=== PATIENT | male | born 1945 | race Two or more races ===

== ENCOUNTER 2022-07-13 06:05 | Inpatient (IN) | payer OTHER ==
[~2022-07-13] VITALS: Ht 157.5 cm; Wt 84.1 kg
[2022-07-13] MEDS ORDERED: SODIUM CHLORIDE 0.9% 1,000 ML IV ONE (07:15)
[2022-07-13] MEDS ORDERED: SODIUM CHLORIDE 0.9% 500 ML IV ONE (07:15)
[2022-07-13 08:01] LABS: Basophils # (auto) 0 10 ^3/uL (0-0.2); Eosinophils # (auto) 0.1 10 ^3/uL (0-0.8); Hemoglobin 8.5 g/dL (13.5-17.5); Lymphocytes # (auto) 0.5 10 ^3/uL (0.4-5.4); Monocytes # (auto) 0.3 10 ^3/uL (0-1.3); Neutrophils # (auto) 5.1 10 ^3/uL (1.6-8.6); White Blood Cell 6.1 10^3/uL (4.4-10.8)
[2022-07-13 08:03] LABS: Basophils % (auto) 0.4 % (0.0-2.0); Eosinophils % (auto) 1.8 % (0.0-7.0); Hematocrit 26.4 % (41.0-53.0); Lymphocytes % (auto) 8.8 % (10.0-50.0); Mean Corpuscular Hemoglobin 26.2 pg (28.0-32.0); Mean Corpuscular Hgb Conc. 32.3 g/dL (32.0-36.0); Mean Corpuscular Volume 81.2 fL (80.0-100.0); Monocytes % (auto) 4.8 % (0.0-12.0); Neutrophils % (auto) 84.2 % (37.0-80.0); Nucleated Red Blood Cells % 0.1 %; Red Blood Cells 3.25 10^6/uL (4.5-5.90); Red Cell Distribution Width 21.8 % (11.8-14.3)
[2022-07-13 08:14] LABS: BUN/Creatinine Ratio 13.3; Calcium 7.2 mg/dL (8.5-10.1); Magnesium 1.7 mg/dL (1.6-2.6); Potassium 3.3 mmol/L (3.5-5.1)
[2022-07-13 08:17] LABS: Bilirubin, Total 0.3 mg/dL (0.2-1.0); Total Protein 6.5 g/dL (6.4-8.2)
[2022-07-13] MEDS ORDERED: LEVOTHYROXINE SODIUM 25 MCG TAB PO ONE (09:00)
[2022-07-13] MEDS ORDERED: POTASSIUM EFFERVESENT TAB 25 MEQ PO ONE (09:00)
[2022-07-14] MEDS ORDERED: TEMAZEPAM 15 MG CAP PO PRN (10:00)
[2022-07-14] MEDS: DOCUSATE SOD 100 MG CAP PO SCH ×2 (10:00→21:12)
[2022-07-14] MEDS ORDERED: ACETAMINOPHEN 325 MG TAB PO PRN (10:00)
[2022-07-14] MEDS ORDERED: HYDROcodone-ACET 5/325MG TAB PO PRN (10:00)
[2022-07-14] MEDS ORDERED: DEXTROSE (50%) 50ML SYRG IV PRN (10:00)
[2022-07-14] MEDS: ENOXAPARIN SOD 30 MG/0.3 ML SYRINGE SC SCH (10:50)
[2022-07-14] MEDS: ACCU-CHEK COMFORT CURVE STRIP VI SCH ×3 (11:21→21:12)
[2022-07-14] MEDS: InsuLIN REG 1unit/0.01ml Soln (100units/ml) SC SCH ×3 (11:21→21:13)
[2022-07-14 16:39] VITALS: BP 136/59
[2022-07-14 17:20] VITALS: BP 136/59
[2022-07-14 21:10] LABS: Urine Bacteria FEW /hpf (None Seen); Urine Blood TRACE /uL (Negative); Urine Budding Yeast OCCASIONAL /hpf (None Seen); Urine Specific Gravity 1.012 (1.001-1.035); Urine WBC 46 /hpf (0 - 3)
[2022-07-14 21:52] VITALS: BP 117/60
[2022-07-15 04:41] VITALS: BP 120/57
[2022-07-15 05:12] LABS: Basophils # (auto) 0 10 ^3/uL (0-0.2); Eosinophils # (auto) 0.2 10 ^3/uL (0-0.8); Hemoglobin 8.7 g/dL (13.5-17.5); Monocytes # (auto) 0.4 10 ^3/uL (0-1.3)
[2022-07-15 05:15] LABS: Basophils % (auto) 0.7 % (0.0-2.0); Eosinophils % (auto) 3.3 % (0.0-7.0); Hematocrit 26.8 % (41.0-53.0); Lymphocytes # (auto) 1.3 10 ^3/uL (0.4-5.4); Monocytes % (auto) 6.8 % (0.0-12.0); Neutrophils # (auto) 4.1 10 ^3/uL (1.6-8.6); Neutrophils % (auto) 68.2 % (37.0-80.0); Red Blood Cells 3.34 10^6/uL (4.5-5.90)
[2022-07-15 05:16] LABS: Mean Corpuscular Hemoglobin 26.1 pg (28.0-32.0); Mean Corpuscular Hgb Conc. 32.6 g/dL (32.0-36.0); Mean Corpuscular Volume 80.1 fL (80.0-100.0)
[2022-07-15 05:23] LABS: Red Cell Distribution Width 22.1 % (11.8-14.3)
[2022-07-15 05:32] LABS: Potassium 3.7 mmol/L (3.5-5.1)
[2022-07-15 05:38] LABS: Albumin 1.8 g/dL (3.4-5.0); Bilirubin, Total 0.4 mg/dL (0.2-1.0); Calcium 6.6 mg/dL (8.5-10.1); Total Protein 6.4 g/dL (6.4-8.2)
[2022-07-15] MEDS: InsuLIN REG 1unit/0.01ml Soln (100units/ml) SC SCH ×4 (06:18→21:14)
[2022-07-15] MEDS: ACCU-CHEK COMFORT CURVE STRIP VI SCH ×4 (06:18→21:14)
[2022-07-15 09:00] VITALS: BP 122/57
[2022-07-15] MEDS: DOCUSATE SOD 100 MG CAP PO SCH ×2 (09:30→21:13)
[2022-07-15] MEDS: ENOXAPARIN SOD 30 MG/0.3 ML SYRINGE SC SCH (09:30)
[2022-07-15] MEDS ORDERED: [UNRECOGNIZED DRUG - CODE] PO (12:47)
[2022-07-15] MEDS ORDERED: KETO2CRE4 TOP (12:47)
[2022-07-15] MEDS ORDERED: PRAV20TA3 PO (12:47)
[2022-07-15] MEDS ORDERED: INS7030I SC (12:47)
[2022-07-15] MEDS ORDERED: CALC0.5C PO (12:47)
[2022-07-15] MEDS ORDERED: PRE5T PO (12:47)
[2022-07-15] MEDS ORDERED: AMLO-489 PO (12:47)
[2022-07-15] MEDS ORDERED: CHOLPOW4 PO (12:47)
[2022-07-15] MEDS ORDERED: FERR-20 PO (12:47)
[2022-07-15 13:00] VITALS: BP 127/62
[2022-07-15] MEDS: LOPERAMIDE HCL 2 MG CAP/TAB PO PRN (16:29)
[2022-07-15 16:47] VITALS: BP 125/58
[2022-07-15] MEDS: PRAVASTATIN SODIUM 20 MG TAB PO SCH (17:51)
[2022-07-15] MEDS: FERROUS SULFATE 325mg EC TAB PO SCH (17:51)
[2022-07-15] MEDS: Glucerna Carbsteady SHAKE Chocolate 8oz PO SCH (17:52)
[2022-07-15] MEDS: predniSONE 5 MG TAB PO SCH (21:13)
[2022-07-15 22:00] VITALS: BP 123/60
[2022-07-15] MEDS: CHOLESTYRAMINE 4 GM POWDER PO SCH (22:22)
[2022-07-16] MEDS: LOPERAMIDE HCL 2 MG CAP/TAB PO PRN ×3 (04:38→21:00)
[2022-07-16 04:46] VITALS: BP 112/58
[2022-07-16] MEDS: InsuLIN REG 1unit/0.01ml Soln (100units/ml) SC SCH ×4 (06:21→21:26)
[2022-07-16] MEDS: ACCU-CHEK COMFORT CURVE STRIP VI SCH ×4 (06:26→21:22)
[2022-07-16] MEDS: Glucerna Carbsteady SHAKE Chocolate 8oz PO SCH ×4 (08:00→18:17)
[2022-07-16 08:35] VITALS: BP 108/54
[2022-07-16] MEDS: FERROUS SULFATE 325mg EC TAB PO SCH ×2 (08:52→18:17)
[2022-07-16] MEDS: DOCUSATE SOD 100 MG CAP PO SCH ×2 (08:53→21:22)
[2022-07-16] MEDS: LEVOTHYROXINE SODIUM 112 MCG TAB PO SCH (08:53)
[2022-07-16] MEDS: LEVOTHYROXINE SODIUM 25 MCG TAB PO SCH (08:53)
[2022-07-16] MEDS: predniSONE 5 MG TAB PO SCH ×2 (08:53→21:22)
[2022-07-16] MEDS: amLODIPine BESYLATE 5 MG TAB PO SCH (08:54)
[2022-07-16] MEDS: ENOXAPARIN SOD 30 MG/0.3 ML SYRINGE SC SCH (08:55)
[2022-07-16] MEDS: CALCITRIOL 0.25 MCG CAP PO SCH (08:55)
[2022-07-16] MEDS ORDERED: CALCITRIOL 0.25 MCG CAP PO SCH (10:00)
[2022-07-16] MEDS: CHOLESTYRAMINE 4 GM POWDER PO SCH ×3 (11:00→23:00)
[2022-07-16 12:25] VITALS: BP 113/55
[2022-07-16 16:39] VITALS: BP 114/54
[2022-07-16] MEDS: PRAVASTATIN SODIUM 20 MG TAB PO SCH (18:18)
[2022-07-16 22:00] VITALS: BP 114/57
[2022-07-17 05:00] VITALS: BP 113/56
[2022-07-17] MEDS: ACCU-CHEK COMFORT CURVE STRIP VI SCH ×4 (06:13→21:58)
[2022-07-17] MEDS: InsuLIN REG 1unit/0.01ml Soln (100units/ml) SC SCH ×4 (06:18→21:59)
[2022-07-17] MEDS: LOPERAMIDE HCL 2 MG CAP/TAB PO PRN ×3 (06:28→20:57)
[2022-07-17 08:00] VITALS: BP 114/42
[2022-07-17] MEDS: LEVOTHYROXINE SODIUM 112 MCG TAB PO SCH (08:46)
[2022-07-17] MEDS: Glucerna Carbsteady SHAKE Chocolate 8oz PO SCH ×3 (08:46→17:38)
[2022-07-17] MEDS: FERROUS SULFATE 325mg EC TAB PO SCH ×2 (08:46→17:38)
[2022-07-17] MEDS: LEVOTHYROXINE SODIUM 25 MCG TAB PO SCH (08:47)
[2022-07-17 08:55] VITALS: BP 114/42
[2022-07-17] MEDS: CALCITRIOL 0.25 MCG CAP PO SCH (09:46)
[2022-07-17] MEDS: predniSONE 5 MG TAB PO SCH ×2 (09:46→21:57)
[2022-07-17] MEDS: amLODIPine BESYLATE 5 MG TAB PO SCH (09:46)
[2022-07-17] MEDS: DOCUSATE SOD 100 MG CAP PO SCH ×3 (09:46→22:00)
[2022-07-17] MEDS: ENOXAPARIN SOD 30 MG/0.3 ML SYRINGE SC SCH (09:47)
[2022-07-17] MEDS: CHOLESTYRAMINE 4 GM POWDER PO SCH ×2 (09:54→21:59)
[2022-07-17 13:00] VITALS: BP 124/56
[2022-07-17 16:49] VITALS: BP 123/42
[2022-07-17] MEDS: PRAVASTATIN SODIUM 20 MG TAB PO SCH (17:38)
[2022-07-17 22:00] VITALS: BP 114/53
[2022-07-17] MEDS: HYDROcodone-ACET 5/325MG TAB PO PRN (22:19)
[2022-07-18] VITALS (7 sets, daily range): BP systolic 108–166; BP diastolic 51–90
[2022-07-18] MEDS: ACCU-CHEK COMFORT CURVE STRIP VI SCH ×4 (05:45→20:41)
[2022-07-18] MEDS: LOPERAMIDE HCL 2 MG CAP/TAB PO PRN (06:12)
[2022-07-18] MEDS: InsuLIN REG 1unit/0.01ml Soln (100units/ml) SC SCH ×4 (06:16→21:58)
[2022-07-18] MEDS: LEVOTHYROXINE SODIUM 25 MCG TAB PO SCH (08:22)
[2022-07-18] MEDS: FERROUS SULFATE 325mg EC TAB PO SCH ×2 (08:22→18:25)
[2022-07-18] MEDS: Glucerna Carbsteady SHAKE Chocolate 8oz PO SCH ×3 (08:22→18:25)
[2022-07-18] MEDS: LEVOTHYROXINE SODIUM 112 MCG TAB PO SCH (08:22)
[2022-07-18] MEDS: DOCUSATE SOD 100 MG CAP PO SCH ×2 (10:00→20:41)
[2022-07-18] MEDS: CALCITRIOL 0.25 MCG CAP PO SCH (10:35)
[2022-07-18] MEDS: ENOXAPARIN SOD 30 MG/0.3 ML SYRINGE SC SCH (10:35)
[2022-07-18] MEDS: predniSONE 5 MG TAB PO SCH ×2 (10:35→21:58)
[2022-07-18] MEDS: amLODIPine BESYLATE 5 MG TAB PO SCH (10:36)
[2022-07-18] MEDS: CHOLESTYRAMINE 4 GM POWDER PO SCH ×2 (11:00→20:42)
[2022-07-18] MEDS ORDERED: cefTRIAXone 1GM/50ML D5W 50 ML IV ONE (13:30)
[2022-07-18] MEDS: PRAVASTATIN SODIUM 20 MG TAB PO SCH (18:26)
[2022-07-18] MEDS: HYDROcodone-ACET 5/325MG TAB PO PRN (22:08)
[2022-07-19 05:00] VITALS: BP 112/55
[2022-07-19] MEDS: ACCU-CHEK COMFORT CURVE STRIP VI SCH ×4 (06:41→21:08)
[2022-07-19] MEDS: InsuLIN REG 1unit/0.01ml Soln (100units/ml) SC SCH ×4 (06:42→21:08)
[2022-07-19 07:28] LABS: Calcium 6.3 mg/dL (8.5-10.1); Magnesium 1.8 mg/dL (1.6-2.6); Potassium 4.6 mmol/L (3.5-5.1)
[2022-07-19 07:30] LABS: BUN/Creatinine Ratio 15.6
[2022-07-19 07:37] LABS: Hemoglobin 8.6 g/dL (13.5-17.5); White Blood Cell 7.2 10^3/uL (4.4-10.8)
[2022-07-19 07:39] LABS: Hematocrit 26.2 % (41.0-53.0); Mean Corpuscular Hemoglobin 25.9 pg (28.0-32.0); Mean Corpuscular Volume 78.4 fL (80.0-100.0); Red Blood Cells 3.34 10^6/uL (4.5-5.90)
[2022-07-19 07:46] LABS: Red Cell Distribution Width 21.5 % (11.8-14.3)
[2022-07-19 07:48] LABS: Band Neutrophils % (manual) 0; Basophils % (manual) 0 (0.0-2.0); Blast Cells 0; Eosinophils % (manual) 0 (0-7); Metamyelocytes % 0; Reactive Lymphocytes 0
[2022-07-19 08:00] VITALS: BP 129/61
[2022-07-19] MEDS: FERROUS SULFATE 325mg EC TAB PO SCH ×2 (08:05→18:03)
[2022-07-19] MEDS: Glucerna Carbsteady SHAKE Chocolate 8oz PO SCH ×3 (08:05→18:03)
[2022-07-19] MEDS: LEVOTHYROXINE SODIUM 112 MCG TAB PO SCH (08:06)
[2022-07-19] MEDS: LEVOTHYROXINE SODIUM 25 MCG TAB PO SCH (08:06)
[2022-07-19 08:45] VITALS: BP 129/61
[2022-07-19 09:16] LABS: Lymphocytes % (manual) 13 (10.0-50.0); Monocytes % (manual) 10 (0-12); Myelocytes % 1; Promyelocytes % 2
[2022-07-19] MEDS: amLODIPine BESYLATE 5 MG TAB PO SCH (09:31)
[2022-07-19] MEDS: cefTRIAXone 1GM/50ML D5W 50 ML IV SCH (09:31)
[2022-07-19] MEDS: ENOXAPARIN SOD 30 MG/0.3 ML SYRINGE SC SCH (09:31)
[2022-07-19] MEDS: predniSONE 5 MG TAB PO SCH ×2 (09:32→21:07)
[2022-07-19] MEDS: CALCITRIOL 0.25 MCG CAP PO SCH (09:32)
[2022-07-19] MEDS: DOCUSATE SOD 100 MG CAP PO SCH (09:33)
[2022-07-19] MEDS: CHOLESTYRAMINE 4 GM POWDER PO SCH ×2 (11:50→23:48)
[2022-07-19 12:00] VITALS: BP 121/74
[2022-07-19] MEDS ORDERED: FUROSEMIDE 40 MG/4 ML VIAL IV ONE (13:30)
[2022-07-19 16:00] VITALS: BP 128/56
[2022-07-19] MEDS: PRAVASTATIN SODIUM 20 MG TAB PO SCH (18:03)
[2022-07-19 21:39] VITALS: BP 120/56
[2022-07-20] VITALS (7 sets, daily range): BP systolic 100–121; BP diastolic 31–67
[2022-07-20 06:13] LABS: Hematocrit 23.2 % (41.0-53.0); Mean Corpuscular Hemoglobin 26.7 pg (28.0-32.0); Mean Corpuscular Hgb Conc. 34.5 g/dL (32.0-36.0); Mean Corpuscular Volume 77.4 fL (80.0-100.0); White Blood Cell 8.8 10^3/uL (4.4-10.8)
[2022-07-20 06:16] LABS: BUN/Creatinine Ratio 17.6; Magnesium 1.5 mg/dL (1.6-2.6); Potassium 4.3 mmol/L (3.5-5.1)
[2022-07-20 06:30] LABS: Red Cell Distribution Width 22.1 % (11.8-14.3)
[2022-07-20 06:32] LABS: Basophils % (manual) 0 (0.0-2.0); Blast Cells 0; Eosinophils % (manual) 0 (0-7); Promyelocytes % 0; Reactive Lymphocytes 0
[2022-07-20] MEDS: ACCU-CHEK COMFORT CURVE STRIP VI SCH ×4 (06:43→21:47)
[2022-07-20] MEDS: InsuLIN REG 1unit/0.01ml Soln (100units/ml) SC SCH ×4 (06:43→21:52)
[2022-07-20 07:49] LABS: Calcium 5.8 mg/dL (8.5-10.1)
[2022-07-20] MEDS: FERROUS SULFATE 325mg EC TAB PO SCH ×2 (07:54→18:00)
[2022-07-20] MEDS: LEVOTHYROXINE SODIUM 112 MCG TAB PO SCH (07:54)
[2022-07-20] MEDS: LEVOTHYROXINE SODIUM 25 MCG TAB PO SCH (07:54)
[2022-07-20 08:15] LABS: Band Neutrophils % (manual) 3; Lymphocytes % (manual) 8 (10.0-50.0); Metamyelocytes % 6; Monocytes % (manual) 5 (0-12); Myelocytes % 2
[2022-07-20] MEDS: Glucerna Carbsteady SHAKE Chocolate 8oz PO SCH ×3 (09:49→18:00)
[2022-07-20] MEDS: cefTRIAXone 1GM/50ML D5W 50 ML IV SCH (09:49)
[2022-07-20] MEDS: FUROSEMIDE 40 MG/4 ML VIAL IV SCH (09:50)
[2022-07-20] MEDS: predniSONE 5 MG TAB PO SCH ×2 (09:50→20:40)
[2022-07-20] MEDS: MAGNESIUM OXIDE 400 MG TAB PO SCH ×2 (09:51→20:40)
[2022-07-20] MEDS: amLODIPine BESYLATE 5 MG TAB PO SCH (09:52)
[2022-07-20] MEDS: ENOXAPARIN SOD 30 MG/0.3 ML SYRINGE SC SCH (09:52)
[2022-07-20] MEDS: CALCITRIOL 0.25 MCG CAP PO SCH (10:02)
[2022-07-20] MEDS: PRAVASTATIN SODIUM 20 MG TAB PO SCH (18:00)
[2022-07-21 04:46] VITALS: BP 112/54
[2022-07-21] MEDS: ACCU-CHEK COMFORT CURVE STRIP VI SCH ×4 (06:09→22:00)
[2022-07-21] MEDS: InsuLIN REG 1unit/0.01ml Soln (100units/ml) SC SCH ×4 (06:12→22:37)
[2022-07-21 06:16] LABS: Hematocrit 23.5 % (41.0-53.0)
[2022-07-21 06:18] LABS: Mean Corpuscular Hemoglobin 26.4 pg (28.0-32.0); Mean Corpuscular Hgb Conc. 33.9 g/dL (32.0-36.0); Mean Corpuscular Volume 77.7 fL (80.0-100.0); Red Blood Cells 3.03 10^6/uL (4.5-5.90); White Blood Cell 9.4 10^3/uL (4.4-10.8)
[2022-07-21 06:30] LABS: Red Cell Distribution Width 21.6 % (11.8-14.3)
[2022-07-21 06:32] LABS: Basophils % (manual) 0 (0.0-2.0); Blast Cells 0; Eosinophils % (manual) 0 (0-7); Promyelocytes % 0; Reactive Lymphocytes 0
[2022-07-21 06:35] LABS: Potassium 3.9 mmol/L (3.5-5.1)
[2022-07-21 06:39] LABS: BUN/Creatinine Ratio 17.8
[2022-07-21 06:54] LABS: Calcium 5.3 mg/dL (8.5-10.1)
[2022-07-21] MEDS: FERROUS SULFATE 325mg EC TAB PO SCH ×2 (08:04→16:47)
[2022-07-21] MEDS: LEVOTHYROXINE SODIUM 112 MCG TAB PO SCH (08:04)
[2022-07-21] MEDS: LEVOTHYROXINE SODIUM 25 MCG TAB PO SCH (08:04)
[2022-07-21] MEDS: Glucerna Carbsteady SHAKE Chocolate 8oz PO SCH ×3 (08:05→16:48)
[2022-07-21] MEDS: cefTRIAXone 1GM/50ML D5W 50 ML IV SCH (08:05)
[2022-07-21 08:23] LABS: Band Neutrophils % (manual) 3; Lymphocytes % (manual) 10 (10.0-50.0); Metamyelocytes % 1; Monocytes % (manual) 7 (0-12); Myelocytes % 1
[2022-07-21 09:00] VITALS: BP 117/58
[2022-07-21] MEDS: MAGNESIUM OXIDE 400 MG TAB PO SCH ×2 (09:57→22:33)
[2022-07-21] MEDS: CALCITRIOL 0.25 MCG CAP PO SCH (09:57)
[2022-07-21] MEDS: predniSONE 5 MG TAB PO SCH ×2 (09:57→22:32)
[2022-07-21] MEDS: ENOXAPARIN SOD 30 MG/0.3 ML SYRINGE SC SCH (09:57)
[2022-07-21] MEDS: FUROSEMIDE 40 MG/4 ML VIAL IV SCH (09:58)
[2022-07-21] MEDS: amLODIPine BESYLATE 5 MG TAB PO SCH (09:58)
[2022-07-21 13:22] VITALS: BP 107/47
[2022-07-21] MEDS: HYDROcodone-ACET 5/325MG TAB PO PRN (16:49)
[2022-07-21 16:50] VITALS: BP 106/53
[2022-07-21] MEDS: LOPERAMIDE HCL 2 MG CAP/TAB PO PRN ×2 (16:54→22:33)
[2022-07-21 22:00] VITALS: BP 109/55
[2022-07-21] MEDS: PRAVASTATIN SODIUM 20 MG TAB PO SCH (22:33)
[2022-07-22 04:48] VITALS: BP 115/58
[2022-07-22] MEDS: ACCU-CHEK COMFORT CURVE STRIP VI SCH ×4 (06:26→21:53)
[2022-07-22] MEDS: InsuLIN REG 1unit/0.01ml Soln (100units/ml) SC SCH ×4 (06:27→21:54)
[2022-07-22 09:00] VITALS: BP 107/59
[2022-07-22] MEDS: FUROSEMIDE 40 MG/4 ML VIAL IV SCH (09:29)
[2022-07-22] MEDS: LOPERAMIDE HCL 2 MG CAP/TAB PO PRN ×2 (09:29→21:53)
[2022-07-22] MEDS: MAGNESIUM OXIDE 400 MG TAB PO SCH ×2 (09:29→21:53)
[2022-07-22] MEDS: ENOXAPARIN SOD 30 MG/0.3 ML SYRINGE SC SCH (09:29)
[2022-07-22] MEDS: LEVOTHYROXINE SODIUM 112 MCG TAB PO SCH (09:30)
[2022-07-22] MEDS: FERROUS SULFATE 325mg EC TAB PO SCH ×2 (09:30→17:33)
[2022-07-22] MEDS: LEVOTHYROXINE SODIUM 25 MCG TAB PO SCH (09:30)
[2022-07-22] MEDS: CALCITRIOL 0.25 MCG CAP PO SCH (09:30)
[2022-07-22] MEDS: predniSONE 5 MG TAB PO SCH ×2 (09:30→21:53)
[2022-07-22] MEDS: Glucerna Carbsteady SHAKE Chocolate 8oz PO SCH ×3 (09:31→17:33)
[2022-07-22] MEDS: amLODIPine BESYLATE 5 MG TAB PO SCH (09:31)
[2022-07-22] MEDS: cefTRIAXone 1GM/50ML D5W 50 ML IV SCH (09:32)
[2022-07-22 13:00] VITALS: BP 109/52
[2022-07-22 17:00] VITALS: BP 115/53
[2022-07-22] MEDS: PRAVASTATIN SODIUM 20 MG TAB PO SCH (21:53)
[2022-07-22 22:00] VITALS: BP_SYST 113; BP_DIAS 49; BP_DIAS 54
[2022-07-23 05:00] VITALS: BP 119/48
[2022-07-23] MEDS: ACCU-CHEK COMFORT CURVE STRIP VI SCH ×4 (06:27→21:51)
[2022-07-23] MEDS: InsuLIN REG 1unit/0.01ml Soln (100units/ml) SC SCH ×4 (06:27→21:54)
[2022-07-23] MEDS: LEVOTHYROXINE SODIUM 112 MCG TAB PO SCH (08:10)
[2022-07-23] MEDS: LEVOTHYROXINE SODIUM 25 MCG TAB PO SCH (08:10)
[2022-07-23] MEDS: FERROUS SULFATE 325mg EC TAB PO SCH ×2 (08:10→18:12)
[2022-07-23] MEDS: Glucerna Carbsteady SHAKE Chocolate 8oz PO SCH ×3 (08:10→18:12)
[2022-07-23] MEDS: cefTRIAXone 1GM/50ML D5W 50 ML IV SCH ×2 (08:10→10:10)
[2022-07-23 08:42] VITALS: BP 118/58
[2022-07-23] MEDS: predniSONE 5 MG TAB PO SCH ×2 (10:06→21:51)
[2022-07-23] MEDS: FUROSEMIDE 40 MG TAB PO SCH (10:07)
[2022-07-23] MEDS: MAGNESIUM OXIDE 400 MG TAB PO SCH ×2 (10:08→21:51)
[2022-07-23] MEDS: amLODIPine BESYLATE 5 MG TAB PO SCH (10:08)
[2022-07-23] MEDS: CALCITRIOL 0.25 MCG CAP PO SCH (10:08)
[2022-07-23] MEDS: ENOXAPARIN SOD 30 MG/0.3 ML SYRINGE SC SCH (10:11)
[2022-07-23 12:51] VITALS: BP 109/54
[2022-07-23 16:19] VITALS: BP 103/49
[2022-07-23] MEDS: PRAVASTATIN SODIUM 20 MG TAB PO SCH (21:51)
[2022-07-23 22:47] VITALS: BP 105/57
[2022-07-24 05:00] VITALS: BP 110/57
[2022-07-24] MEDS: ACCU-CHEK COMFORT CURVE STRIP VI SCH ×4 (06:42→22:39)
[2022-07-24] MEDS: InsuLIN REG 1unit/0.01ml Soln (100units/ml) SC SCH ×4 (06:46→22:41)
[2022-07-24] MEDS ORDERED: INSULIN LANTUS (GLARGINE) 1 /0.01ml (100units/ml) SC ONE (07:00)
[2022-07-24] MEDS: MAGNESIUM OXIDE 400 MG TAB PO SCH ×2 (08:58→22:52)
[2022-07-24] MEDS: cefTRIAXone 1GM/50ML D5W 50 ML IV SCH (08:58)
[2022-07-24] MEDS: ENOXAPARIN SOD 30 MG/0.3 ML SYRINGE SC SCH (08:58)
[2022-07-24] MEDS: FUROSEMIDE 40 MG TAB PO SCH (08:59)
[2022-07-24] MEDS: CALCITRIOL 0.25 MCG CAP PO SCH (08:59)
[2022-07-24] MEDS: LEVOTHYROXINE SODIUM 112 MCG TAB PO SCH (08:59)
[2022-07-24] MEDS: LEVOTHYROXINE SODIUM 25 MCG TAB PO SCH (08:59)
[2022-07-24] MEDS: amLODIPine BESYLATE 5 MG TAB PO SCH (09:00)
[2022-07-24] MEDS: predniSONE 5 MG TAB PO SCH ×2 (09:00→22:52)
[2022-07-24] MEDS: Glucerna Carbsteady SHAKE Chocolate 8oz PO SCH ×3 (09:00→18:00)
[2022-07-24] MEDS: FERROUS SULFATE 325mg EC TAB PO SCH ×2 (09:00→17:17)
[2022-07-24 09:29] VITALS: BP 109/59
[2022-07-24 12:47] VITALS: BP 102/54
[2022-07-24 16:29] VITALS: BP 108/53
[2022-07-24 22:00] VITALS: BP 114/56
[2022-07-24] MEDS ORDERED: INSULIN LANTUS (GLARGINE) 1 /0.01ml (100units/ml) SC SCH (22:00)
[2022-07-24] MEDS: PRAVASTATIN SODIUM 20 MG TAB PO SCH (22:52)
[2022-07-25 05:30] VITALS: BP 111/55
[2022-07-25] MEDS: ACCU-CHEK COMFORT CURVE STRIP VI SCH ×2 (06:27→13:11)
[2022-07-25] MEDS: InsuLIN REG 1unit/0.01ml Soln (100units/ml) SC SCH ×2 (06:30→13:05)
[2022-07-25 08:00] VITALS: BP 107/54
[2022-07-25] MEDS: FERROUS SULFATE 325mg EC TAB PO SCH (08:44)
[2022-07-25] MEDS: LEVOTHYROXINE SODIUM 25 MCG TAB PO SCH (08:44)
[2022-07-25] MEDS: LEVOTHYROXINE SODIUM 112 MCG TAB PO SCH (08:44)
[2022-07-25] MEDS: cefTRIAXone 1GM/50ML D5W 50 ML IV SCH (08:44)
[2022-07-25] MEDS: Glucerna Carbsteady SHAKE Chocolate 8oz PO SCH ×2 (08:44→13:04)
[2022-07-25 09:00] VITALS: BP 107/54
[2022-07-25] MEDS: predniSONE 5 MG TAB PO SCH (10:32)
[2022-07-25] MEDS: ENOXAPARIN SOD 30 MG/0.3 ML SYRINGE SC SCH (10:33)
[2022-07-25] MEDS: FUROSEMIDE 40 MG TAB PO SCH (10:33)
[2022-07-25] MEDS: amLODIPine BESYLATE 5 MG TAB PO SCH (10:33)
[2022-07-25] MEDS: MAGNESIUM OXIDE 400 MG TAB PO SCH (10:33)
[2022-07-25] MEDS: CALCITRIOL 0.25 MCG CAP PO SCH (10:33)
== END 2022-07-25 14:52 | DRG 947 ==
LOC: EDBD 06:05 → ER 06:05 → OVERFLOW 07-14 09:45 → WEST WING 07-14 16:24 → UNDODISIN 07-25 12:46
PROVIDERS: ADMIT Registered Nurse; ATTEND Internal Medicine Geriatric Medicine
DX: R53.1 Weakness (principal); E43 Unspecified severe protein-calorie malnutrition; C79.51 Secondary malignant neoplasm of bone; N39.0 Urinary tract infection, site not specified; E11.649 Type 2 diabetes mellitus with hypoglycemia without coma; N18.9 Chronic kidney disease, unspecified; E11.22 Type 2 diabetes mellitus with diabetic chronic kidney disease; E03.9 Hypothyroidism, unspecified; D50.9 Iron deficiency anemia, unspecified; E87.6 Hypokalemia; I12.9 Hypertensive chronic kidney disease with stage 1 through stage 4 chronic kidney disease, or unspecified chronic kidney disease; Z20.822 Contact with and (suspected) exposure to COVID-19; C61 Malignant neoplasm of prostate; Z75.1 Person awaiting admission to adequate facility elsewhere; Z68.31 Body mass index [BMI] 31.0-31.9, adult; Z85.46 Personal history of malignant neoplasm of prostate
CPT/HCPCS: 36415; 71045; 80048; 80053; 81001; 82962; 83735; 84443; 85007; 85025; 85027; 87081; 93005; 96360; 96361; 96372; 97110; 97116; 97163; 97530; G0378; J0696; J1815